=== PATIENT | female | born 1995 | race Caucasian/White ===

== ENCOUNTER → 2018-03-04 13:34 | Observation (INO) ==
[2018-03-04 12:30] LABS: Bilirubin,Urine Negative (Negative); Blood,Urine Negative (Negative); Color,Urine Yellow (Yellow); Glucose,Urine (UA) Normal (Normal); Ketones,Urine Negative (Negative); Leukocyte Esterase,Urine Large (Negative); Nitrite,Urine Negative (Negative); Protein,Urine Negative (Neg-Trace); Specific Gravity,Urine 1.006 (1.010-1.025); Urobilinogen,Urine Normal (Normal)
[2018-03-04 12:32] LABS: Bacteria,Urine Moderate per hpf (None-Few); Hyaline Casts,Urine None Seen per lpf (None-Few); RBC,Urine 0-3 per hpf (0-3); Squamous Epithelial Cell,Urine Many per lpf (None-Few)
[2018-03-04 12:48] LABS: Clarity,Urine Slightly Hazy (Clear)
--- NOTE | 2018-03-04 13:17 | Discharge Summary ---
Date of Encounter: 03/04/18 Time of Encounter: 13:17 - Discharge Diagnosis (1) 33 weeks gestation of Priority: Primary Status: Acute Comments: admitted for observation (2) UTI (urinary tract infection) Priority: Secondary Status: Acute Comments: RX for Macrobid Qualifiers: Urinary tract infection type: acute cystitis Hematuria presence: without hematuria Qualified Code(s): N30.00 - Acute cystitis without hematuria - Discharge Medications Prescriptions: Nitrofurantoin (BID) [Macrobid] 100 mg PO BID #14 capsule Home Medications: Glipizide/Metformin HCl 500 mg PO DAILY 03/04/18 [History] Nitrofurantoin (BID) [Macrobid] 100 mg PO BID #14 capsule 03/04/18 [Rx] Ondansetron HCl [Zofran] 4 mg PO Q8HR PRN 03/04/18 [History] Allergies/Adverse Reactions: 3 Allergy/AdvReac Type Severity Reaction Status Date / Time No Known Allergies Allergy Verified 03/04/18 12:22 Data Procedures and tests throughout hospitalization: Laboratory Tests 03/04/18 11:29 Urine Color Yellow Urine Clarity Slightly Hazy Urine pH 7.0 Ur Specific [place] 1.006 L Urine Protein Negative Urine Glucose (UA) Normal Urine Ketones Negative Urine Blood Negative Urine Nitrite Negative Urine Bilirubin Negative Urine Urobilinogen Normal Ur Leukocyte Esterase Large H Urine Microscopic RBC 0-3 Urine Microscopic WBC 5-15 H Ur Squamous Epith Cells Many H Urine Bacteria Moderate H Hyaline Casts None Seen Ur Culture Indicated? NO. A Labs on day of discharge: Labs from last 24 hours 03/04/18 11:29 Urine Color Yellow Urine Clarity Slightly Hazy Urine pH 7.0 Ur Specific [place] 1.006 L Urine Protein Negative Urine Glucose (UA) Normal Urine Ketones Negative Urine Blood Negative Urine Nitrite Negative Urine Bilirubin Negative Urine Urobilinogen Normal Ur Leukocyte Esterase Large H Urine Microscopic RBC 0-3 Urine Microscopic WBC 5-15 H Ur Squamous Epith Cells Many H Urine Bacteria Moderate H Hyaline Casts None Seen Ur Culture Indicated? NO. A Date of admission: 03/04/18 11:27 Primary care physician: Tyrone Saldivar MD Discharging clinician: Renea Barros Anticipated date of discharge: 03/04/18 - Patient Status Disposition: Home, Self-Care Condition: Good Functional capacity at discharge: independent ambulation - Discharge Instructions Follow Up With: Tyrone Saldivar MD [Primary Care Provider] - Maxime Ramon DO [Partnered Physician] - - Diet and Activity Activity: increase activity as tolerated Diet: regular diet Hospital Course MANAGER HVAC Hospital course: Patient is a 22 y/o at 33w5d presents to labor and delivery with complaints of lower abdominal pain that radiates to her lower back. Patient reports +FM, denies VB or LOF. Time Attestation: Total time spent providing and/or coordinating discharge services: Time Spent: Less than 30 minutes Exam - Constitutional General appearance IM: A&O X 3, pleasant, answers questions appropriately - Respiratory Respiratory exam: Present: CTAB - Cardiovascular Cardiovascular exam IM: Present: RRR, +S1, +S2 - GI/Abdominal GI/Abdominal exam IM: normal bowel sounds - Extremities Exam Extremities exam IM: Present: full ROM, normal capillary refill, normal inspection - Neurological Exam Neurological exam: alert, oriented X3, reflexes normal - Other Additional findings: FHR 130 bpm moderate variability +15x15 accels no decels noted. Cat. 1 tracing. - VTE Reasons for not Prescribing Prophylaxis: Treatment not Indicated - Low risk for VTE
[2018-03-04 14:52] VITALS: BP 116/66
[2018-03-04 15:55] LABS: Amphetamine Screen,Urine Negative ng/mL (Cutoff=1000); Barbiturate Screen,Urine Negative ng/mL (Cutoff=200); Benzodiazepines Screen,Urine Negative ng/mL (Cutoff=200); Cannabinoid Screen,Urine Negative ng/mL (Cutoff = 50); Cocaine Screen,Urine Negative ng/mL (Cutoff= 300); Opiate Screen,Urine Negative ng/mL (Cutoff=300); Phencyclidine Screen,Urine Negative ng/mL (Cutoff=25)
== END | disposition home or self-care (01) ==
LOC: 1NENULAB
PROVIDERS: ADMIT Student in an Organized Health Care Education/Training Program; ATTEND Student in an Organized Health Care Education/Training Program

== ENCOUNTER → 2018-03-25 06:45 | Observation (INO) ==
[2018-03-25 04:20] LABS: Bilirubin,Urine Negative (Negative); Blood,Urine Negative (Negative); Clarity,Urine Clear (Clear); Color,Urine Yellow (Yellow); Glucose,Urine (UA) Normal (Normal); Ketones,Urine 15 mg/dL (Negative); Leukocyte Esterase,Urine Small (Negative); Nitrite,Urine Negative (Negative); PH,Urine 6.5 pH Units (5.0-8.0); Protein,Urine Negative (Neg-Trace); Specific Gravity,Urine 1.022 (1.010-1.025); Urobilinogen,Urine Normal (Normal)
[2018-03-25 04:23] LABS: Bacteria,Urine None Seen per hpf (None-Few); Hyaline Casts,Urine None Seen per lpf (None-Few); Squamous Epithelial Cell,Urine Many per lpf (None-Few)
[2018-03-25 04:29] LABS: Amphetamine Screen,Urine Negative ng/mL (Cutoff=1000); Barbiturate Screen,Urine Negative ng/mL (Cutoff=200); Benzodiazepines Screen,Urine Negative ng/mL (Cutoff=200); Cannabinoid Screen,Urine Negative ng/mL (Cutoff = 50); Cocaine Screen,Urine Negative ng/mL (Cutoff= 300); Opiate Screen,Urine Negative ng/mL (Cutoff=300); Phencyclidine Screen,Urine Negative ng/mL (Cutoff=25)
--- NOTE | 2018-03-25 06:22 | OB/GYN Progress Note ---
Date of Encounter: 03/25/18 Time of Encounter: 06:18 - Assessment and Plan (1) 36 weeks gestation of Current Visit: Yes Status: Acute (2) Uterine contractions during Current Visit: Yes Status: Acute No change on serial cervical exams, and exams are no different than was not last office visit. Will discharge home with labor and when to return to triage precautions. Patient in agreement with plan of verbalize understanding Subjective - Subjective Interval history: 36+6 weeks gestation presents to triage from [place] ED with complaints of contraction. Patient states on o'clock this morning she started having strong intense uterine contractions. Reports good movement, denies vaginal bleeding or leaking of fluid Antepartum ROS: movement normal, contractions, no loss of fluid, no vaginal bleeding Objective - Vital Signs Vital Signs: Intake and Output 03/24/18 03/24/18 03/25/18 15:59 23:59 07:59 Other: Weight 92.533 kg Patient Weight 03/25/18 23:59 Weight 92.533 kg - Exam FHR: auscultation normal FHR comments: Baseline 125 Abdomen: Present: normal appearance, soft, gravid Cervical dilation: 1 cm/high per RN no change from office exam - Labs Labs: Abnormal lab results Urine Ketones 15 mg/dL (Negative) H 03/25/18 04:05 Ur Leukocyte Esterase Small (Negative) H 03/25/18 04:05 Urine Microscopic RBC 3-5 per hpf (0-3) H 03/25/18 04:05 Urine Microscopic WBC 3-5 per hpf (0-3) H 03/25/18 04:05 Ur Squamous Epith Cells Many per lpf (None-Few) H 03/25/18 04:05 Ur Culture Indicated? NO. (NO) A 03/25/18 04:05
== END | disposition home or self-care (01) ==
LOC: 1NENULAB
PROVIDERS: ADMIT Advanced Practice Midwife; ATTEND Advanced Practice Midwife

== ENCOUNTER 2018-04-11 09:42 | Inpatient (IN) ==
[2018-04-11] MEDS ORDERED: Famotidine 20 MG/2 ML VIAL IVP PRN (10:09)
[2018-04-11] MEDS ORDERED: Metoclopramide 10 MG/2 ML VIAL IVP PRN (10:09)
[2018-04-11] MEDS ORDERED: miSOPROStol 25 MCG TABLET VG PRN (10:09)
[2018-04-11] MEDS ORDERED: *HR* Nalbuphine 10 MG/ML AMPUL IVP PRN (10:09)
[2018-04-11] MEDS ORDERED: Ondansetron 4 MG/2 ML VIAL IVP PRN (10:09)
[2018-04-11] MEDS ORDERED: Naloxone 0.4 MG/ML INJ IVP PRN (10:09)
[2018-04-11] MEDS ORDERED: Ringers Solution, Lactated 1,000 ML IVC SCH (10:15)
[2018-04-11 11:23] LABS: Basophils % 0.1 %; Eosinophils % 0.1 %; Hematocrit 37.3 % (35.3-44.9); Hemoglobin 12.7 g/dL (11.5-15.4); Lymphocytes # 1.9 K/mcL (0.6-4.6); Lymphocytes % 18.4 %; Mean Corpuscular Hemoglobin 28.5 pg (28.0-33.3); Mean Corpuscular Volume 83.8 fL (83.0-100.0); Mean Platelet Volume 10.9 fL (9.4-12.4); Monocytes # 0.6 K/mcL (0.0-1.3); Monocytes % 5.7 %; Neutrophils # 7.5 K/mcL (1.6-8.9); Platelet Count 219 K/mcL (140-400); Red Blood Count 4.45 M/mcL (3.82-4.97); Red Cell Distribution Width 14.1 % (11.5-14.5); Segmented Neutrophils % 74.7 %
--- NOTE | 2018-04-11 11:37 | OB Labor Progress Note ---
Date of Encounter: 04/11/18 Time of Encounter: 11:33 Labor Progress Note - Subjective Subjective: Discussed POC with patient. Patient denies any questions or concerns. - Cervix Cervix: 1/70/-2 - Heart Tones Heart Tones: 145 bpm moderate variability - Candor Candor: irregular - Interventions Interventions: SVE, attemped steele catheter placement for induction-was unsuccessful. Cytotec 25mcg vaginally placed at this time. - Plan Plan: Continue labor management.
--- NOTE | 2018-04-11 11:56 | OB/GYN History & Physical ---
Date of Encounter: 04/11/18 Time of Encounter: 11:50 Assessment and Plan (1) and not yet delivered in third trimester Current visit: Yes Status: Acute (2) White classification A2 gestational diabetes mellitus (GDM) Current visit: Yes Status: Acute We will monitor patient's blood sugars with Accu-Cheks every 4 hours (3) 39 weeks gestation of Current visit: No Status: Resolved (4) Elective induction of labor planned Current visit: No Status: Resolved She will be induced with a Salter catheter and Cytotec plan is to anticipate vaginal delivery History of Present Illness HPI: Ms. Kiser is a 22 year old female 4 para 3 at 39-2/7 weeks who was brought in for induction of labor secondary term with favorable cervix and being a gestational diabetic. Patient is an A2 diabetic on metformin. Patient has been getting NSTs twice a week which have been stable recommendation from maternal medicine was to deliver in the 39 week range. Patient states blood sugars have all been stable at home she is having good movement was having some contractions prior to coming in but nothing she could time and denies any leaking of fluid. Patient is A+, GBS negative, rubella positive, Varicella positive Past Med Surg Social Fam HX - Past Medical History Source: patient, old records reviewed Medical history: diabetes (Gestational A2), other Additional medical history: 3 vaginal deliveries Psychiatric history: no psych history - Past Surgical History Surgical History: no surgical history - Social History Smoking Status: Current every day smoker Smokeless Tobacco Status: No Alcohol use: none Drug use: none Occupational status: employed Current living situation: Home - Independent Activity Level: Independent ambulation Recent Out of Country Travel Within the Last 8 Weeks: No Exposure or Possible Exposure to Illness During Travel: No - Family History Mother Adopted: [place]: Analia Gillis Age: 45 Family Member Ethnicity: Non- Living Status: Still Living Hx Family Cardiac Disorders: No Hx Family Respiratory Disorders: No Hx Family Cancer: No Hx Family GI Disorders: No Hx Family Endocrine Disorder: Yes (DM) Hx Family Neuromuscular Disorders: No Hx Family Neurologic Disorders: No Hx Family HEENT Disorders: No Hx Family Autoimmune Disorders: No - Additional Family History Additional family history: Family history noncontributory Obstetrical History - Pregnancies : 4 Para: 3 Term: 3 : 0 Ab's: 0 Livin Medications and Allergies metFORMIN [Glucophage] 500 mg PO DAILY 06/26/18 [History] 3 Allergy/AdvReac Type Severity Reaction Status Date / Time No Known Allergies Allergy Verified 03/25/18 02:35 Review of System OB All systems PM: reviewed and no additional remarkable complaints except as stated Exam - Constitutional Constitutional: well developed, well nourished, no acute distress, average body habitus - HEENT HEENT: EOMI, PERRL, Mucus Membranes Moist - Neck Neck exam: full ROM - Lungs Respiratory exam: CTAB - Cardiovascular Cardiovascular exam: RRR - Abdomen Abdomen: Present: bowel sounds normal, gravid ( heart tones 140s reactive irregular contractions) - Cervix Dilation: 2 Effacement: 80 Station: -2 (Salter catheter placed 30 mL balloon inflated 25 g Cytotec previously placed) - Uterus Uterus exam: Present: enlarged Results Result Diagrams: 04/11/18 10:50 All other labs normal. - VTE Reasons for not Prescribing Prophylaxis: Treatment not Indicated - Low risk for VTE
[2018-04-11] MEDS: 0.9 % Sodium Chloride 1,000 ML IVC SCH ×2 (12:36→16:56)
[2018-04-11 13:13] LABS: Amphetamine Screen,Urine Negative ng/mL (Cutoff=1000); Barbiturate Screen,Urine Negative ng/mL (Cutoff=200); Benzodiazepines Screen,Urine Negative ng/mL (Cutoff=200); Cannabinoid Screen,Urine Negative ng/mL (Cutoff = 50); Cocaine Screen,Urine Negative ng/mL (Cutoff= 300); Opiate Screen,Urine Negative ng/mL (Cutoff=300); Phencyclidine Screen,Urine Negative ng/mL (Cutoff=25)
--- NOTE | 2018-04-11 15:21 | Anesthesia Evaluation PreOp ---
Date of Encounter: 04/11/18 Time of Encounter: 15:19 - Past History Planned Operation: ruben Cardiac History: Denies any Significant Hx Pulmonary History: Smoker, Pack/yr (5) AFTER SCHOOL COORDINATOR History: Denies Any Significant HX Other Medical History: Diabetes Type II Anesthesia History: No Prior Anesthetic Complications, Past Anesthesia (ruben x 3) Alcohol Use: none Drug use: none Medications and Allergies metFORMIN [Glucophage] 500 mg PO DAILY 03/25/18 [History] 3 Allergy/AdvReac Type Severity Reaction Status Date / Time No Known Allergies Allergy Verified 03/25/18 02:35 - Meds/Allergy Pre-op Review Medications Reviewed: Yes Allergies Reviewed: Yes Beta Blockers on Current Med List: No Anesthesia Results - Labs 04/11/18 10:50 04/11/18 10:50 Anesthesia Exam 118/73 96 16 fht 122 Height: 5'3" Weight: 95 NPO (# of Hours): 4 Pain Scale: 3 Pain Scale Used: Numeric (1 - 10) - HEENT Pupil (Motor): Pupils equal Mallampati: II Teeth: Normal Oral Opening: Greater than 3 - AFTER SCHOOL COORDINATOR LOC: Oriented AFTER SCHOOL COORDINATOR Motor: Normal RUE, Normal LUE, Normal RLE, Normal LLE, Normal Face AFTER SCHOOL COORDINATOR Sensory: Normal: RUE, LUE, RLE, LLE, Face - Cardiac Rhythm: Regular Murmur: None - Pulmonary Breath Sounds: bilateral Clear Respiratory Effort: Symmetrical Anesthesia Assess/Plan ASA Score: 3 Modified Donalds Scale for Level of Consciousness: Cooperative, oriented, and tranquil Anesthetic Plan: Regional Autologous Blood: No Monitoring Plan: Standard Monitors Recovery Plan: Other (risks discussed questions answered, consented)
[2018-04-11] MEDS ORDERED: *HR* FentaNYL (PF) 100 MCG/2 ML VIAL EP ONE ×2 (15:23→19:56)
[2018-04-11] MEDS ORDERED: *HR* Ropivacaine/PF 0.2% 20 ML VIAL EP ONE (15:23)
[2018-04-11] MEDS ORDERED: Epidural Premix (fent/bupiv) 110 ML EP SCH (15:30)
--- NOTE | 2018-04-11 16:00 | OB Labor Progress Note ---
Date of Encounter: 04/11/18 Time of Encounter: 15:58 Labor Progress Note - Subjective Subjective: Patient reports contractions are getting stronger. Discussed POC with patient. Patient denies any questions or concerns. - Cervix Cervix: 5/80/-1 - Heart Tones Heart Tones: 120 bpm moderate variability +15x15 accels no decels noted. Cat. 1 tracing - [place]: 2-4 min apart - Interventions Interventions: SVE, AROM moderate amount of clear fluid. Patient tolerated well. - Plan Plan: Continue labor management. anticipate
[2018-04-11] MEDS ORDERED: *HR* FentaNYL (PF) 100 MCG/2 ML VIAL ONE (16:08)
[2018-04-11] MEDS ORDERED: Lidocaine -MPF 2% 5 ML VIAL ONE (16:09)
[2018-04-11] MEDS ORDERED: *HR* Ropivacaine/PF 0.2% 20 ML VIAL ONE (16:09)
--- NOTE | 2018-04-11 16:41 | Anesthesia Procedures ---
Date of Encounter: 04/11/18 Time of Encounter: 16:39 Procedures: Anesthesia - Epidural/Spinal Patient ID/Chart reviewed: Yes Patient examined: Yes OB Eval: Gestational age: 39.2 OB Eval: : 4 OB Eval: Hx Para: 3 OB Eval: Dilated at (cm): 6 OB Eval: Contractions: Non-stressed pattern Consent Obtained: Yes Supplemental Oxygen: None/Room Air Site Prep: Aseptic Technique, Sterile prep and drape, 0.5% Chlorhexidine/Alcohol Local Anesthetic: Lidocaine 1% Amount of Local Anesthetic used: 3 Touhy Needle Gauge: 18 Touhy Needle Depth (cm): 7 Catheter Depth at Skin (cm): 15 Test Dose (1.5% Lido + Epi): Volume given (mls): 3 Test Dose Result: Negative Loading Dose: Fentanyl (mcg): 100 Loading Dose: Other: rop 0.2% 10cc Loading Dose Administered: Thru Touhy Needle Infusion Med: 0.125% Bupivacaine w/ 2 mcg/ml Fentanyl Infusion Rate (mls/hr): 15 (pcea 5 cc q30") Catheter Secured in Place: Tegaderm Interspace Used: L2-L3 Loss of Resistance (SONIA): Yes Blood: No CSF: No Procedure: aseptic, sarmad well, VSS, effective Vitals + FHT's: 130/88 76 16 fht 134
--- NOTE | 2018-04-11 17:13 | OB Labor Progress Note ---
Date of Encounter: 04/11/18 Time of Encounter: 17:10 Labor Progress Note - Subjective Subjective: Patient is very comfortable with epidural - Cervix Cervix: 4/80/-3 - Heart Tones Heart Tones: heart tones 140s reactive - [place]: IUPC placed contraction irregular every 3-5 min - Plan Plan: We will augment with Pitocin plan is to anticipate vaginal delivery
[2018-04-11] MEDS ORDERED: Oxytocin 20 units/ LR 1000 mL 20 UNIT/1,000 ML BAG IVC SCH ×2 (17:15→23:30)
[2018-04-11] MEDS ORDERED: Oxytocin 20 units/ LR 1000 mL 20 UNIT/1,000 ML BAG IVC ONE (17:16)
--- NOTE | 2018-04-11 20:05 | Anesthesia Progress Note ---
Date of Encounter: 04/11/18 Time of Encounter: 20:04 Anesthesia Note - Note Note: 04/11/18 20:04 bolus for break through pain fentanyl 100mcg rop 0.2% 5cc
--- NOTE | 2018-04-11 21:02 | OB/GYN Procedure Note ---
Delivery - Delivery Date: 04/11/18 Provider: Maxime Ramon Delivery induction: steele, misoprostol Delivery augmentation: rupture of membranes, pitocin Delivery monitor: external FHT, external uterine Anesthesia: epidural Quantitated Blood Loss: 200 - (s) Infant A Delivery Date: 04/11/18 Infant Delivery Time: 20:39 Presentation: vertex Position: ALIX Route of delivery: Gender: Male Viability: Viable Pounds: 7 Ounces: 1 Weight Gram: 3.195 kg at 1 minute: 8 at 5 mins: 9 Shoulder Dystocia: not encountered Specimens collected: cord blood Placenta: spontaneous Cord: 3 umbilical vessels - Repair Episiotomy: none Laceration Description: None - Complications Delivery complications: none Delivery comments: Patient is a 22-year-old 4 para 3 at 39-2/7 weeks who presented for induction of labor secondary to term . The cervix and being an A2 gestational diabetic patient blood sugars have been well-controlled by maternal medicine. She did have to go on metformin which helped. The patient was getting NSTs twice a week was advised by maternal medicine that she needed to deliver in the 39 week range she is brought to labor and delivery with Steele catheter and Cytotec was placed catheter fell out approximate 1 hour later patient was artificially ruptured for clear fluid did receive an epidural with contractions spaced out and Pitocin was then added to augment her labor she then progressed appropriately became complete and pushed twice delivering a viable male infant in left occiput anterior presentation at 2038. There was no nuchal cord, no meconium, infant was bulb suctioned the abdomen. Apgars were 8 at 1 minute, 9 at 5 minutes, infant weight was 7 lbs. 1 oz. Placenta was then delivered spontaneously with a three-vessel cord, director school of nursing Dr. Ramon, anesthesia epidural, estimated blood loss 200 mL. Perineum cervix and vagina was also visualized intact. Patient tolerated delivery well she will be observed 2 hours before being taken floor. - Disposition Mom disposition: stable in LDR [place] disposition: stable in LDR
[2018-04-11] MEDS ORDERED: Acetaminophen 325 MG TABLET PO PRN (23:30)
[2018-04-11] MEDS ORDERED: Measles/Mumps/Rubella Vacc 0.5 ML VIAL SQ PRN (23:30)
[2018-04-12] MEDS: Ibuprofen 600 MG TABLET PO PRN ×4 (00:04→23:18)
[2018-04-12 05:58] LABS: Basophils % 0.1 %; Eosinophils % 0.2 %; Hematocrit 34.1 % (35.3-44.9); Hemoglobin 11.8 g/dL (11.5-15.4); Immature Granulocytes % 0.6 % (0-4); Lymphocytes % 18.6 %; Mean Corpuscular HGB Conc 34.6 g/dL (31.6-35.5); Mean Corpuscular Hemoglobin 29.1 pg (28.0-33.3); Mean Corpuscular Volume 84.2 fL (83.0-100.0); Mean Platelet Volume 10.6 fL (9.4-12.4); Monocytes # 0.7 K/mcL (0.0-1.3); Monocytes % 6.4 %; Neutrophils # 7.9 K/mcL (1.6-8.9); Platelet Count 163 K/mcL (140-400); Red Blood Count 4.05 M/mcL (3.82-4.97); Red Cell Distribution Width 13.8 % (11.5-14.5); Segmented Neutrophils % 74.1 %
[2018-04-12] MEDS: Prenatal Vit/FA 1 EACH TABLET PO SCH (07:58)
--- NOTE | 2018-04-12 09:54 | OB/GYN Progress Note ---
Date of Encounter: 04/12/18 Time of Encounter: 09:52 - Assessment and Plan (1) Status post vaginal delivery Current Visit: Yes Status: Acute Stable PPD#1 Continue current management Anticipate discharge tomorrow Subjective - Subjective Interval history: Pain well managed, bleeding minimal. bottle feeding. Patient reports: appetite normal, voiding normally, pain well controlled, ambulating normally : doing well Objective - Latest Vital Signs Latest vital signs: Vital Signs Temp Pulse Resp BP Pulse Ox 04/12/18 07:40 97.9 F 68 12 115/71 99 04/12/18 05:49 98.4 F 73 16 103/68 97 04/12/18 01:10 98.6 F 82 16 110/62 96 04/12/18 00:10 98.9 F 79 20 121/76 97 04/11/18 23:15 97.5 F L 72 16 116/76 98 Intake and Output 04/11/18 04/12/18 04/12/18 23:59 07:59 15:59 Intake Total 1000 / 1000 300 / 300 Output Total 1200 / 1200 200 / 200 Balance -200 / -200 100 / 100 Intake: IV Fluids 1000 / 1000 0.9 % Sodium Chloride 1,000 ML 1000 / 1000 @ 125 mls/hr IVC .Q8H LUCAS Rx#: [id number] Oral 300 / 300 Output: Urine 900 / 900 200 / 200 Catheter 300 / 300 Urethral (Salter) 300 / 300 Other: Weight 92.8 kg Blood Glucose* 84 - Exam Lungs: bilateral: normal Chest: Normal S1, Normal S2 Extremities: Present: normal Abdomen: Present: soft Uterus: Present: firm Uterus Position: At Umbilicus - Labs Labs: Laboratory Results - last 24 hr 04/11/18 04/11/18 04/11/18 10:50 10:50 10:50 WBC 10.1 RBC 4.45 Hgb 12.7 Hct 37.3 MCV 83.8 MCH 28.5 MCHC 34.0 RDW 14.1 Plt Count 219 MPV 10.9 Immature Gran % 1.0 Seg Neutrophils % 74.7 Lymphocytes % 18.4 Monocytes % 5.7 Eosinophils % 0.1 Basophils % 0.1 Neutrophils # 7.5 Lymphocytes # 1.9 Monocytes # 0.6 Eosinophils # 0.0 Basophils # 0.0 Glucose 138 H POC Glucose Urine Opiates Screen Negative Ur Barbiturates Screen Negative Ur Phencyclidine Scrn Negative Ur Amphetamines Screen Negative U Benzodiazepines Scrn Negative Urine Cocaine Screen Negative U Marijuana (THC) Screen Negative Ur Drug Screen Interp See Below 04/11/18 04/11/18 04/12/18 14:53 18:48 05:34 WBC 10.6 RBC 4.05 Hgb 11.8 Hct 34.1 L MCV 84.2 MCH 29.1 MCHC 34.6 RDW 13.8 Plt Count 163 MPV 10.6 Immature Gran % 0.6 Seg Neutrophils % 74.1 Lymphocytes % 18.6 Monocytes % 6.4 Eosinophils % 0.2 Basophils % 0.1 Neutrophils # 7.9 Lymphocytes # 2.0 Monocytes # 0.7 Eosinophils # 0.0 Basophils # 0.0 Glucose POC Glucose 87 84 Urine Opiates Screen Ur Barbiturates Screen Ur Phencyclidine Scrn Ur Amphetamines Screen U Benzodiazepines Scrn Urine Cocaine Screen U Marijuana (THC) Screen Ur Drug Screen Interp
[2018-04-12] MEDS ORDERED: *HR* HYDROcodone/Acet 5/325 mg TABLET PO ONE (14:09)
[2018-04-13 08:02] VITALS: BP 121/81
[2018-04-13] MEDS: Ibuprofen 600 MG TABLET PO PRN (08:05)
[2018-04-13] MEDS: Prenatal Vit/FA 1 EACH TABLET PO SCH (08:05)
--- NOTE | 2018-04-13 08:22 | Discharge Summary ---
Date of Encounter: 04/13/18 Time of Encounter: 08:20 - Discharge Diagnosis (1) and not yet delivered in third trimester Priority: Secondary Status: Acute (2) White classification A2 gestational diabetes mellitus (GDM) Priority: Secondary Status: Acute (3) 39 weeks gestation of Priority: Secondary Status: Resolved (4) Elective induction of labor planned Priority: Secondary Status: Resolved (5) Status post normal vaginal delivery Priority: Primary Status: Acute - Discharge Medications Prescriptions: Ibuprofen [Motrin] 600 mg PO Q6HR PRN #30 tablet PRN Reason: Cramping Home Medications: Ibuprofen [Motrin] 600 mg PO Q6HR PRN #30 tablet 04/13/18 [Rx] Allergies/Adverse Reactions: 3 Allergy/AdvReac Type Severity Reaction Status Date / Time No Known Allergies Allergy Verified 03/25/18 02:35 Data Procedures and tests throughout hospitalization: Laboratory Tests 04/11/18 04/11/18 04/11/18 10:50 10:50 10:50 WBC 10.1 RBC 4.45 Hgb 12.7 Hct 37.3 MCV 83.8 MCH 28.5 MCHC 34.0 RDW 14.1 Plt Count 219 MPV 10.9 Immature Gran % 1.0 Seg Neutrophils % 74.7 Lymphocytes % 18.4 Monocytes % 5.7 Eosinophils % 0.1 Basophils % 0.1 Neutrophils # 7.5 Lymphocytes # 1.9 Monocytes # 0.6 Eosinophils # 0.0 Basophils # 0.0 Glucose 138 H POC Glucose Urine Opiates Screen Negative Ur Barbiturates Screen Negative Ur Phencyclidine Scrn Negative Ur Amphetamines Screen Negative U Benzodiazepines Scrn Negative Urine Cocaine Screen Negative U Marijuana (THC) Screen Negative Ur Drug Screen Interp See Below 04/11/18 04/11/18 04/12/18 14:53 18:48 05:34 WBC 10.6 RBC 4.05 Hgb 11.8 Hct 34.1 L MCV 84.2 MCH 29.1 MCHC 34.6 RDW 13.8 Plt Count 163 MPV 10.6 Immature Gran % 0.6 Seg Neutrophils % 74.1 Lymphocytes % 18.6 Monocytes % 6.4 Eosinophils % 0.2 Basophils % 0.1 Neutrophils # 7.9 Lymphocytes # 2.0 Monocytes # 0.7 Eosinophils # 0.0 Basophils # 0.0 Glucose POC Glucose 87 84 Urine Opiates Screen Ur Barbiturates Screen Ur Phencyclidine Scrn Ur Amphetamines Screen U Benzodiazepines Scrn Urine Cocaine Screen U Marijuana (THC) Screen Ur Drug Screen Interp Date of admission: 04/11/18 09:42 Primary care physician: Tyrone Saldivar MD Consults: 04/11/18 23:30 Consult to Cylinder Machine Operator [CONS] Routine Comment: Vaginal delivery, consult needed Discharging clinician: Maxime Ramon Anticipated date of discharge: 04/13/18 - Patient Status Disposition: Home, Self-Care Condition: Good Functional capacity at discharge: independent ambulation Overall status at discharge: patient is progressing back to baseline - Discharge Instructions Follow Up With: Tyrone Saldivar MD [Primary Care Provider] - Maxime Ramon DO [Partnered Physician] - - Diet and Activity Activity: increase activity as tolerated Diet: advance to your usual diet Hospital Course Procedures: Vaginal delivery Reason for admission: active labor Delivery: Episiotomy: none Laceration: none Other procedures: none complications: none Hospital course: Patient is a 22-year-old 4 para 3 who presented for induction of labor second term with favorable cervix. She underwent a normal spontaneous vaginal delivery without any complications. Hospital course was unremarkable patient was discharged home on hospital day #1 with prescription for Motrin 600 mg and she will follow up in the office in 4 weeks. Patient's condition at the time of discharge was stable Time Attestation: Total time spent providing and/or coordinating discharge services: Exam - Constitutional Vitals: Temp Pulse Resp BP Pulse Ox 98.3 F 81 14 121/81 98 04/13/18 08:01 04/13/18 08:01 04/13/18 08:01 04/13/18 08:01 04/13/18 08:01 General appearance IM: A&O X 3 - Respiratory Respiratory exam: Present: CTAB - Cardiovascular Cardiovascular exam IM: Present: RRR - GI/Abdominal GI/Abdominal exam IM: normal bowel sounds - Rectal Rectal exam: deferred - Uterus Position: At Umbilicus
== END 2018-04-13 10:54 | disposition home or self-care (01) | DRG 542 ==
LOC: 1NENULAB 09:42 → 1NENUOBS 23:28
PROVIDERS: ADMIT Obstetrics & Gynecology; ATTEND Obstetrics & Gynecology